=== PATIENT | female | born 1980 | race Caucasian/White ===

== ENCOUNTER 2017-04-19 14:49 | Observation (INO) | payer OTHER ==
--- NOTE | 2017-04-19 15:56 | EDPHY ---
H & P Stated Complaint: ABDOMINAL PAIN SHOULDER PAIN HPI/ROS: HPI CHIEF COMPLAINT: Abdominal pain, sudden onset HISTORY OF PRESENT ILLNESS: This patient very pleasant 36-year-old female does have significant past medical history for ovarian cyst, she presents emergency room with sudden onset lower pelvic abdominal pain and bloating while having intercourse at 2:00 a.m. last night. She states the pain has been persistent. She decided to go to politely his today to work out to see if this would improve her abdominal pain however the abdominal pain got worse. She also reports to me that when she takes a deep breath in she gets referred right shoulder pain. Denies chest pain or shortness of breath. However when she does take a deep breath in her abdomen hurts her. She is tender no low adnexal bilaterally. Denies vaginal bleeding. Denies being . Denies urinary symptoms. Denies diarrhea, fever, vomiting. Apple Oddi she noticed when she went to lay flat she developed worsening pelvic pain. Past Medical History: Ovarian cyst Past Surgical History: Left knee surgery Social History: Denies daily use of drugs alcohol tobacco products Family History: Noncontributory ROS REVIEW OF SYSTEMS: A comprehensive 10 point review of systems is otherwise negative aside from elements mentioned in the history of present illness. Exam Constitutional appears well nontoxic triage nursing summary reviewed, vital signs reviewed, awake/alert. Eyes normal conjunctivae and sclera, EOMI, PERRLA. HENT normal inspection, atraumatic, moist mucus membranes, no epistaxis, neck supple/ no meningismus, no raccoon eyes. Respiratory clear to auscultation bilaterally, normal breath sounds, no respiratory distress, no wheezing. Cardiovascular rate normal, regular rhythm, no murmur, no edema, distal pulses normal. Gastrointestinal soft however tenderness palpation bilateral adnexa, no peritoneal signs, no rebound, no guarding, normal bowel sounds, no distension, no pulsatile mass. Genitourinary no CVA tenderness. Musculoskeletal no midline vertebral tenderness, full range of motion, no calf swelling, no tenderness of extremities, no meningismus, good pulses, neurovascularly intact. Skin pink, warm, & dry, no rash, skin atraumatic. Neurologic awake, alert and oriented x 3, AAOx3, moves all 4 extremities equally, motor intact, sensory intact, CN II-XII intact, normal cerebellar, normal vision, normal speech. Psychiatric normal mood/affect. Heme/Lymph/Immune no lymphadenopathy. Differential diagnosis includes but is not limited to and in no particular order : Ruptured ovarian cyst, intra-abdominal free fluid, ovarian torsion, ectopic , Bowel obstruction, appendicitis, gallbladder disease, diverticulitis, colitis, enteritis, perforated viscus, gastritis, GERD, esophagitis, urinary tract infection, pyelonephritis, kidney stones Medical Decision Making: Plan for this IV establishment, IV fluid bolus, IV Dilaudid for acute pain control. Pelvic ultrasound, basic blood work. Urinalysis. test. Re-evaluation: CT scan of the abdomen pelvis with IV contrast. The results of the study are shows a large amount of free fluid with Hounsfield units that are consistent with blood. Fluid is present throughout the entire abdomen tracks along the liver edge. Is also noted to be at 3.6 x 3 cm mass in the right adnexa. Concerning for mass versus ruptured ovarian cyst. The study was read by Dr. Ramírez . I viewed the images myself on the PACS system. 1818: Patient has ongoing abdominal pain. Her vital signs are hemodynamically stable her H&H are noted to be a hemoglobin of 10. Given her CT scan shows blood in her abdomen with a right ovarian or right adnexal mass I will consult OBGYN for 1. for admission for hemodynamic monitoring 2. pain control, also for evaluation of most likely active bleeding ovarian cyst. 1823: Spoke Yuli Marmolejo. Onc-call for OBGYN. Will speak with their attending physician Dr. García. They will be briefly back with me. Meanwhile patient be typed and screen. 2nd IV started. Most likely she will need to be admitted for hemoperitoneum and ruptured ovarian cyst. At this time she is hemodynamically stable no acute distress. 1850: Dr. García at bedside evaluating patient will take patient to the OR for laparoscopic evaluation of large amount of hemoperitoneum with most likely ruptured ovarian cyst. At this time patient hemodynamically stable. H&H reviewed. 2nd IV placed. Patient type and screen. Critical Care: Total Critical Care Time Spent Managing this Patient: 65Minutes. This time was spent Exclusively with this patient. This Care was exclusive of procedures. The Organ System/life at risk was hemorrhagic This Patient was in Critical Condition because intra-abdominal hemorrhage requiring resuscitation. Source: Patient - Personal History LMP (Females 10-55): 22-28 Days Ago Current Tetanus/Diphtheria Vaccine: No - Medical/Surgical History Hx Asthma: No Hx Chronic Respiratory Disease: No Hx Diabetes: No Hx Cardiac Disease: No Hx Renal Disease: No Hx Cirrhosis: No Hx Alcoholism: No Hx HIV/AIDS: No Hx Splenectomy or Spleen Trauma: No Other PMH: HERNIA - Social History Smoking Status: Never smoked Constitutional: Initial Vital Signs Temperature (C) 36.9 C 04/19/17 15:06 Heart Rate 110 H 04/19/17 15:06 Respiratory Rate 18 04/19/17 15:06 Blood Pressure 101/72 04/19/17 15:06 O2 Sat (%) 99 04/19/17 15:06 O2 Delivery Mode Nasal Cannula O2 (L/minute) 2 Allergies/Adverse Reactions: No Allergies [NKDA] Allergy (Verified 10/24/10 14:54) Home Medications: Medication Instructions Recorded Hydrocodone/APAP 5/325 [Wadley 1 - 2 tab PO Q4HRS PRN #40 tab 04/20/17 5/325 (*)] Ibuprofen [Motrin (*)] 600 mg PO Q6H #40 tab 04/20/17 Medical Decision Making - Data Points Laboratory Results: Laboratory Results 04/19/17 16:15 04/19/17 16:15 Medications Given: Discontinued Medications Hydromorphone HCl (Dilaudid) 0.5 mg IVP EDNOW ONE Stop: 04/19/17 16:07 Last Admin: 04/19/17 16:17 Dose: 0.5 mg Hydromorphone HCl (Dilaudid) 1 mg IVP EDNOW ONE Stop: 04/19/17 17:28 Last Admin: 04/19/17 17:45 Dose: 1 mg Sodium Chloride (Ns) 1,000 mls @ 0 mls/hr IV EDNOW ONE; Wide Open PRN Reason: Protocol Stop: 04/19/17 16:07 Last Admin: 04/19/17 16:17 Dose: 1,000 mls Sodium Chloride (Ns) 1,000 mls @ 0 mls/hr IV ONCE ONE PRN Reason: Wide Open Stop: 04/19/17 17:28 Last Admin: 04/19/17 17:45 Dose: 1,000 mls Meperidine HCl (Demerol 25 Mg/Ml Syringe) 12.5 - 25 mg IVP ONCE PRN PRN Reason: PACU,shivering/rigors Stop: 04/19/17 22:19 Last Admin: 04/19/17 22:14 Dose: 12.5 mg Midazolam HCl (Versed) 2 mg IVP ONCALL ONE Stop: 04/19/17 19:40 Last Admin: 04/19/17 23:33 Dose: Not Given Ondansetron HCl (Zofran) 4 mg IVP EDNOW ONE Stop: 04/19/17 17:42 Last Admin: 04/19/17 17:42 Dose: 4 mg Ondansetron HCl (Zofran) 4 mg IVP EDNOW ONE Stop: 04/19/17 17:48 Last Admin: 04/19/17 17:49 Dose: Not Given Departure - Departure Disposition: [facility] Clinical Impression: Ruptured ovarian cyst, Hemoperitoneum Condition: Fair
[2017-04-19] MEDS ORDERED: NS 1,000 ML IV ONE ×2 (16:06→17:27)
[2017-04-19] MEDS: HYDROmorphONE/DILAUDID 1 MG/ML SYR IVP ONE ×2 (16:15→16:17)
[2017-04-19 16:26] LABS: % IMMATURE GRANULYOCYTES 0.5 % (0.0-1.1); ABSOLUTE IMMATURE GRANULOCYTES 0.07 10^3/uL (0.00-0.10); ADD DIFF? NO; ADD MORPH? NO; ADD SCAN? NO; ATYPICAL LYMPHOCYTE FLAG 10 (0-99); FRAGMENT RBC FLAG 0 (0-99); HEMATOCRIT 31.8 % (38.0-47.0); HEMOGLOBIN 10.5 g/dL (12.6-16.3); LEFT SHIFT FLG 0 (0-99); LIPEMIA HEMOLYSIS FLAG 80 (0-99); MEAN CELL HEMOGLOBIN 30.3 pg (27.9-34.1); MEAN CELL VOLUME 91.9 fL (81.5-99.8); MEAN PLATELET VOLUME 9.8 fL (8.7-11.7); PLATELET CLUMPS FLAG 0 (0-99); PLATELET COUNT 317 10^3/uL (150-400); RED BLOOD CELL COUNT 3.46 10^6/uL (4.18-5.33); RED CELL DISTRIBUTION WIDTH 12.6 % (11.5-15.2)
[2017-04-19 16:42] LABS: ALANINE AMINOTRANSFERASE 26 IU/L (9-52); ALBUMIN 4.2 g/dL (3.5-5.0); ALKALINE PHOSPHATASE 43 IU/L (38-126); ANION GAP 12 mEq/L (8-16); ASPARTATE AMINOTRANSFERASE 20 IU/L (14-46); BILIRUBIN,TOTAL 0.8 mg/dL (0.1-1.4); BILIRUBIN-CONJUGATED 0.1 mg/dL (0.0-0.5); BILIRUBIN-UNCONJUGATED 0.7 mg/dL (0.0-1.1); CALCIUM 9.6 mg/dL (8.5-10.4); CARBON DIOXIDE 19 mEq/l (22-31); CHLORIDE 107 mEq/L (97-110); CREATININE 0.7 mg/dL (0.6-1.0); GLOMERULAR FILTRATION RATE > 60; GLUCOSE 122 mg/dL (70-100); SODIUM 138 mEq/L (134-144); TOTAL PROTEIN 7.3 g/dL (6.3-8.2)
[2017-04-19] MEDS ORDERED: HYDROmorphONE/DILAUDID 1 MG/ML SYR IVP ONE (17:27)
[2017-04-19] MEDS ORDERED: IOPAMIDOL (ISOVUE-300) 100 ML BTL ONE (17:36)
[2017-04-19] MEDS ORDERED: ONDANSETRON 4 MG/2 ML VIAL ONE ×2 (17:38→20:04)
[2017-04-19] MEDS ORDERED: ONDANSETRON 4 MG/2 ML VIAL IVP ONE ×2 (17:41→17:47)
[2017-04-19 19:18] LABS: % IMMATURE GRANULYOCYTES 0.4 % (0.0-1.1); ABSOLUTE IMMATURE GRANULOCYTES 0.05 10^3/uL (0.00-0.10); ADD DIFF? NO; ADD MORPH? NO; ADD SCAN? NO; ATYPICAL LYMPHOCYTE FLAG 0 (0-99); FRAGMENT RBC FLAG 0 (0-99); HEMATOCRIT 26.1 % (38.0-47.0); HEMOGLOBIN 8.7 g/dL (12.6-16.3); LEFT SHIFT FLG 0 (0-99); LIPEMIA HEMOLYSIS FLAG 80 (0-99); MEAN CELL HEMOGLOBIN CONCENTR. 33.3 g/dL (32.4-36.7); MEAN CELL VOLUME 92.9 fL (81.5-99.8); MEAN PLATELET VOLUME 9.7 fL (8.7-11.7); PLATELET CLUMPS FLAG 0 (0-99); PLATELET COUNT 255 10^3/uL (150-400); RED BLOOD CELL COUNT 2.81 10^6/uL (4.18-5.33); RED CELL DISTRIBUTION WIDTH 12.5 % (11.5-15.2)
[2017-04-19] MEDS ORDERED: SILVER NITRATE APPLICATOR 1 APPL TP ONE (19:31)
[2017-04-19] MEDS ORDERED: BUPIVACAINE 0.25% 30 ML SDV ONE (19:31)
[2017-04-19] MEDS ORDERED: MIDAZOLAM 2 MG/2 ML VIAL IVP ONE (19:39)
--- NOTE | 2017-04-19 19:39 | PDANEPAE ---
ANE History of Present Illness 36 yo F w/ abdominal pain, evidence for ruptured ovarian cyst, here for ex lap ANE Past Medical History - Cardiovascular History Hx Hypertension: No Hx Arrhythmias: No Hx Chest Pain: No Hx Coronary Artery / Peripheral Vascular Disease: No Hx CHF / Valvular Disease: No Hx Palpitations: No - Pulmonary History Hx COPD: No Hx Asthma/Reactive Airway Disease: No - Endocrine History Hx Diabetes: No ANE Review of Systems Review of systems is: negative - Exercise capacity Exercise capacity: >=4 METS ANE Patient History - Allergies Allergies/Adverse Reactions: No Allergies [NKDA] Allergy (Verified 10/24/10 14:54) - Home Medications Home medications: home medication list seen and reviewed Home Medications: NK [No Known Home Meds] 04/19/17 [Last Taken Unknown] - NPO status NPO Status: no food or drink >8 hours NPO Since - Liquids (Date): 04/19/17 NPO Since - Liquids (Time): 09:00 - Anes Hx Anes Hx: no prior problems - Smoking Hx Smoking Status: Never smoked - Alcohol Use Alcohol Use: Rarely - Family Anes Hx Family Anes Hx: none ANE Labs/Vital Signs - Labs Result Diagrams: 04/19/17 19:12 04/19/17 16:15 - Vital Signs Blood Pressure: 108/51 Heart Rate: 98 Respiratory Rate: 16 O2 Sat (%): 100 Height: 16.76 m Weight: 58.967 kg ANE Physical Exam - Airway Neck exam: FROM Mallampati Score: Class 1 Mouth exam: normal dental/mouth exam - Pulmonary Pulmonary: no respiratory distress, clear to auscultation - Cardiovascular Cardiovascular: regular rate and rhythym, no murmur, rub, or gallop - ASA Status ASA Status: I, E ANE Anesthesia Plan Anesthesia Plan: general endotracheal anesthesia
[2017-04-19] MEDS ORDERED: PROPOFOL 200 MG/20 ML VIAL ONE (19:43)
[2017-04-19] MEDS ORDERED: fentaNYL 100 MCG/2 ML INJ ONE ×2 (19:43→21:20)
[2017-04-19] MEDS ORDERED: ROCURONIUM 50 MG/5 ML VIAL ONE (19:46)
[2017-04-19] MEDS ORDERED: LIDOCAINE 2% 100 MG/5 ML SYR ONE (19:46)
[2017-04-19] MEDS ORDERED: MIDAZOLAM 2 MG/2 ML VIAL ONE (19:47)
--- NOTE | 2017-04-19 20:00 | GHP ---
[f rep st] HISTORY AND PHYSICAL DATE OF ADMISSION: 04/19/2017 CHIEF COMPLAINT: Abdominal pain. HISTORY OF PRESENT ILLNESS: The patient is a 36-year-old 2, para 2 female with last menstru al period of March 24, 2017, who presents to the emergency room with acute onset lower abdominal pain that she reports started with intercourse last night around 2 a.m. She reports the pain intermitte ntly became worse and has become much more constant over the last few hours. She now has pain radia ting up into her right shoulder with deep breaths. She denies any chest pain or shortness of breath . She denies any vaginal bleeding. She reports that she has been using condoms for control a nd denies any known . She denies any urinary symptoms or gastrointestinal symptoms other t perkins mild nausea, but no vomiting. PAST MEDICAL HISTORY: History of an ovarian cyst in the past. PAST SURGICAL HISTORY: Left knee arthroscopy and wisdom teeth removal. PAST OBSTETRIC HISTORY: History of spontaneous vaginal delivery x2 in the past with no complication s reported. ALLERGIES: No known drug allergies. MEDICATIONS: None. SOCIAL HISTORY: Denies any tobacco, alcohol, or drug use. FAMILY HISTORY: Noncontributory. REVIEW OF SYSTEMS: A comprehensive 10-point review of systems was reviewed and is otherwise negativ e aside from elements mentioned in History of Present Illness. PHYSICAL EXAMINATION: VITAL SIGNS: Blood pressure 101/57, with heart rate of 77, respiratory rate 20, O2 sat 99% on 2 L of nasal cannula. GENERAL: Mild distress due to pain when lying flat. CHEST : Clear to auscultation bilaterally. CARDIOVASCULAR: Regular rate and rhythm. ABDOMEN: Tender t o palpation throughout her abdomen with mild rebound and no guarding. PELVIC: The uterus and adnex a were tender bilaterally. LABORATORY DATA: CBC shows hematocrit of 31 and normal platelets at 1615. Chemistry panel normal o ther than slightly low carbon dioxide and elevated glucose. Normal lipase and normal liver function tests. Serum beta HCG was negative. Type and screen is pending. Pelvic ultrasound showed free fluid, possibly representing hemorrhage noted in the pelvis, with an i ndeterminate right adnexal abnormality and left ovary that was not well visualized. The right ovary did appear normal. The left ovary was measured but was not as clearly seen. There is a more fixed structure in the right adnexa which could reflect focal bowel hemorrhage, hematoma or a mass. CT scan of the abdomen and pelvis with IV contrast shows a large amount of free fluid with Hounsfiel d units that are consistent with blood. Fluid is present throughout the entire abdomen and tracks a long the liver edge. There is also a 3.6 x 3 cm mass in the right adnexa with suspected active blee ding as read with Dr. García. ASSESSMENT: 1. Patient is a 36-year-old 2, para 2 female with hemoperitoneum and abdominal pain with a suspected ruptured right ovarian cyst. Currently hemodynamically stable but with significant pain a nd hemoperitoneum confirmed on imaging. Plan: Admit to the operating room. 2. Anemia: Repeat CBC ordered while getting the patient to the operating room. 3. Right ovarian cyst ruptured with hemoperitoneum: The patient was counseled along with her juan rba nd regarding the clinical and imaging findings that are consistent with a suspected ruptured hemorrh agic ovarian cyst. PLAN: I recommended that we plan to proceed with operative laparoscopy, removal of the hemoperitone um and an ovarian cystectomy or any other necessary procedures to stop the bleeding. We discussed t he risks of surgery in depth to include general risks of infection, bleeding, damage to surrounding structures and organs, blood transfusion, and all necessary procedures to include risks of anesthesi a. All questions were answered. She agrees to proceed. /[id number]/MODL
[2017-04-19] MEDS ORDERED: DEXAMETHASONE 4 MG/ML VIAL ONE (20:04)
[2017-04-19] MEDS ORDERED: SURGIFLO MATRIX KIT WITH THROMBIN TP ONE (21:04)
[2017-04-19] MEDS ORDERED: fentaNYL 100 MCG/2 ML INJ IVP PRN ×2 (21:19)
[2017-04-19] MEDS ORDERED: HYDROmorphONE/DILAUDID 1 MG/ML SYR IVP PRN ×2 (21:19)
[2017-04-19] MEDS ORDERED: D5W LR 500 ML IV PRN (21:19)
[2017-04-19] MEDS ORDERED: PROMETHAZINE HCL 25 MG/ML INJ IVP PRN (21:19)
[2017-04-19] MEDS ORDERED: ONDANSETRON 4 MG/2 ML VIAL IVP PRN ×2 (21:19→21:47)
[2017-04-19] MEDS ORDERED: NALOXONE HCL 0.4 MG/ML INJ IVP PRN (21:19)
[2017-04-19] MEDS ORDERED: SUGAMMADEX SODIUM 200 MG/2 ML VIAL IVP ONE (21:25)
[2017-04-19] MEDS ORDERED: HYDROCODONE/APAP 5/325 TAB PO PRN (21:45)
--- NOTE | 2017-04-19 21:52 | POSTANESTH ---
Post Anesthetic Evaluation Cardiovascular Status: Normal, Stable, Similar to Pre-Op Cond Respiratory Status: Normal, Stable, Similar to Pre-op Cond. Level of Consciousness/Mental Status: Can Participate in Eval, Alert and Oriented Pain Control: Adequate, Prn Tx Ordered Nausea/Vomiting Control: Adequate, Prn Tx Ordered Complications Possibly Related to Anesthesia: None Noted
--- NOTE | 2017-04-19 21:53 | POSTOPPROG ---
Post Op Note Date of Operation: 04/19/17 Surgeon: Leola García Brick Molder Hand: Shaila Cat MD Anesthesiologist: MD Skyla Anesthesia: GET(General Endotracheal) Pre-op Diagnosis: 1) Hemoperitoneum, 2) Ruptured ovarian cyst Post-op Diagnosis: CRISTA Indication: Hemoperitoneum with acute abdominal pain Procedure: L/S right ovarian cystectomy, evacuation of hemoperitoneum Findings: Hemoperitoneum of 1000cc, actively bleeding right ovarian cyst Inf/Abcess present in the surg proc area at time of surgery?: No Depth: Organ Space EBL: Minimal Total fluids administered: 400 cc Complications: None Drains: Other (sosa to gravity) Specimen(s): right ovarian cyst
[2017-04-19] MEDS ORDERED: LR 1,000 ML IV SCH (22:00)
[2017-04-19] MEDS ORDERED: MEPERIDINE 25 MG/ML SYR ONE (22:03)
[2017-04-19] MEDS: MEPERIDINE 25 MG/ML SYR IVP PRN ×2 (22:04→22:14)
[2017-04-19 22:21] LABS: HEMATOCRIT 29.2 % (38.0-47.0); HEMOGLOBIN 9.4 g/dL (12.6-16.3)
[2017-04-20] MEDS: IBUPROFEN 600 MG TAB PO SCH ×3 (00:16→11:58)
[2017-04-20 06:49] LABS: % IMMATURE GRANULYOCYTES 0.5 % (0.0-1.1); ABSOLUTE IMMATURE GRANULOCYTES 0.07 10^3/uL (0.00-0.10); ADD DIFF? NO; ADD MORPH? NO; ADD SCAN? NO; ATYPICAL LYMPHOCYTE FLAG 10 (0-99); FRAGMENT RBC FLAG 0 (0-99); HEMATOCRIT 25.3 % (38.0-47.0); HEMOGLOBIN 8.1 g/dL (12.6-16.3); LEFT SHIFT FLG 0 (0-99); LIPEMIA HEMOLYSIS FLAG 80 (0-99); MEAN CELL VOLUME 93.7 fL (81.5-99.8); MEAN PLATELET VOLUME 10.2 fL (8.7-11.7); PLATELET CLUMPS FLAG 10 (0-99); PLATELET COUNT 241 10^3/uL (150-400); RED CELL DISTRIBUTION WIDTH 12.9 % (11.5-15.2)
--- NOTE | 2017-04-20 08:50 | SOAPPROG ---
SOAP Progress Note Assessment/Plan: Assessment: 36 y/o POD#1 s/p L/S right ovarian cystectomy and evacuation of hemoperitoneum - hemodynamically stable and doing well Plan: 1) Discharge home 2) RX for motrin and norco given. OTC iron for mild anemia 3) F/U in 2 weeks or sooner prn 04/20/17 08:49 Subjective: Pt is feeling well, ambulating, sosa out, no void yet, pain well controlled with only motrin. No complaints. No nausea/vomiting. No lightheadedness/ dizziness. Objective: Vital Signs Temp Pulse Resp BP Pulse Ox 37.3 C 90 18 113/58 L 99 04/20/17 01:45 04/20/17 01:45 04/20/17 01:45 04/20/17 01:45 04/20/17 01:45 Laboratory Results 04/20/17 06:00 04/19/17 04/20/17 04/21/17 05:59 05:59 05:59 Intake Total 2750 Output Total 1225 Balance 1525 Physical Exam - Physical Exam General Appearance: WD/WN, alert, no apparent distress Respiratory: lungs clear Cardiac/Chest: regular rate, rhythm Abdomen: normal bowel sounds, non-tender, soft (incisions - c/d/i) ICD10 Worksheet Patient Problems: Problems Problem Status Onset Hemoperitoneum Acute Ruptured ovarian cyst Acute
--- NOTE | 2017-04-20 08:52 | PDDCSUM ---
Discharge Summary Discharge Summary: Admission dx = hemoperitoneum, abdominal pain Discharge dx = ruptured right ovarian cyst, s/p laparoscopic right ovarian cystectomy Hospital course: Pt underwent a L/S right ovarian cystectomy with evacuation of 1000cc of hemoperitoneum. No immediate complications. She did well postoperatively with HCT of 25. No symptoms of anemia. Pain well controlled, voiding, ambulating, passing flatus. F/U in 2 weeks w/ Dr García RX for motrin and norco given Pain/bleeding/fever precautions Regular diet
[2017-04-20 08:57] VITALS: BP 99/55; PULSE 82; RESP 16; TEMP 98.8; O2SAT 96
--- NOTE | 2017-04-20 10:26 | GOP ---
[f rep st] OPERATIVE REPORT DATE OF OPERATION: 04/19/2017 SURGEON: Leola García MD NEEDLE FELT MAKING MACHINE OPERATOR: Shaila Cta MD ANESTHESIA: General. PREOPERATIVE DIAGNOSIS: 1. Acute abdominal pain. 2. Hemoperitoneum. 3. Suspected ruptured right ovarian cyst. POSTOPERATIVE DIAGNOSIS: 1. Hemoperitoneum. 2. Acute abdominal pain. 3. Ruptured right ovarian cyst. PROCEDURE PERFORMED: Laparoscopic right ovarian cystectomy and evacuation of hemoperitoneum. FINDINGS: 1. Normal uterus, bilateral fallopian tubes, and left ovary. 2. Significant hemoperitoneum was noted throughout her pelvis and abdomen totaling 1000 cc by the e nd of the surgery. 1. The right ovary was found to have active bleeding that was coming from the cyst within the right ovary. The cyst was opened, and the cyst wall was dissected and removed. Hemostasis was then obta ined. 3. SPECIMENS: Cyst wall and ovarian cysts. ESTIMATED BLOOD LOSS: 25 cc. INDICATIONS: Patient is a 36-year-old 2, para 2, female who presented with acute abdominal pain and was noted to have hemoperitoneum with a suspected complex finding near the right adnexa con sistent with a suspected ruptured right ovarian cyst. Her preoperative hematocrit dropped from 31 t o 26 over a 3-hour period. She remained hemodynamically stable, but clearly had evidence of a surgi jocelyn abdomen. She was counseled and agreed to proceed with surgical evaluation and treatment as need ed. DESCRIPTION OF PROCEDURE: The patient was taken to the operating room, where general anesthesia was found to be adequate. Patient was prepared and draped in the normal sterile fashion in the dorsal lithotomy position. A speculum was placed in the patient's vagina and a Argueta retractor used to visu madeleine the cervix clearly. A single-toothed tenaculum was placed on the anterior lip of the cervix, and a Guerrero uterine manipulator was placed into the cervix to provide a means to manipulate the uteru s. The speculum was then removed, and attention was turned to the patient's abdomen. A 5 mm skin incision was made in the patient's umbilicus after injection of 0.25% Marcaine. Unless otherwise noted, all anesthetic used was 0.25% Marcaine. A Veress needle was placed through this in cision and placed into the abdominal cavity while tenting the abdominal wall. Intraperitoneal place ment was confirmed with use of a water-filled syringe and appropriate entry CO2 gas pressures. The abdomen was then insufflated with CO2 gas until a pressure of 15 mmHg was reached. The Veress needl e was removed, and a 5 mm trocar was placed through this incision into the peritoneal cavity under d irect visualization with an Optiview trocar. The patient was then placed in Trendelenburg positioni ng, and the findings were significant for hemoperitoneum throughout her abdomen and pelvis. A 5 mm skin incision was then placed on the patient's left side 2 cm superior and anterior to the anterior iliac spine after injection of local anesthetic. A 5 mm trocar was placed through this site into th e peritoneal cavity under direct visualization. A trocar was then placed on the patient's right linda e. The hemoperitoneum was then evacuated from the pelvis. The ovaries and tubes were examined closely, and active bleeding was noted from the right ovary. The cyst wall was penetrated with unipolar cau elvia using the [place]'s. The blood was irrigated out of the cyst cavity. The cyst wall was then grasped with the [place] graspers and teased out initially in pieces with the [place]'s using othe r graspers for counter traction. At one point, the cyst wall was grasped and what appeared to be a large cyst was removed intact from the cyst cavity. This was clearly too large to remove through a 5 mm port. Therefore, the decision was made to enlarge the umbilical incision to a 10 mm incision. The 5 mm trocar was removed. The camera was placed in a side port. A 10 mm incision was then made with a scalpel, and a 10 mm trocar was placed through that incision into the peritoneal cavity unde r direct visualization. An EndoCatch bag was then placed through this incision, and the ovarian cys t was removed using the EndoCatch bag and sent to Pathology. The ovarian cyst cavity was then exami lora closely, and hemostasis was initially attempted using the unipolar cautery without any success. The decision was made to place a third port in order to get better ability to suction and cauterize simultaneously. A 5 mm trocar was placed through a 5 mm skin incision 2 cm superior to the pubic b one in the midline. After placement of this trocar, the cyst cavity was clearly visualized. The gy katty was then used to obtain hemostasis around the edges of the cyst cavity and then used to obtain h emostasis within the cyst cavity. The base of the entire cyst was cauterized, and hemostasis was vi sualized. The pelvis and abdomen were then irrigated with copious amounts of normal saline, and all the hemoperitoneum was evacuated as well as possible. The cyst cavity was examined closely once ag ain, and hemostasis was visualized. For assurance of hemostasis, Surgiflo was then placed in the cy st cavity laparoscopically. Hemostasis was assured, and no active bleeding was noted. The trocars were then removed under direct visualization, and the gas was allowed to escape from her abdomen. The umbilical incision was then examined, and the fascia was closed with an interrupted stitch of 0 Vicryl. The skin incisions were then all closed with subcuticular stitches of 4-0 Monocryl. Hemost asis was assured. The Steri-Strips and bandage dressings were placed. The vaginal instruments were removed from the vagina, and hemostasis was obtained at the tenaculum s ite with silver nitrate. All sponge, lap, and needle counts were correct x2. Patient was awoken from anesthesia without any immediate complications. COMPLICATIONS: None. DRAINS: Solis to gravity. INTRAOPERATIVE HEMOPERITONEUM: 1000 cc. IV FLUIDS: 400 cc. URINE OUTPUT: 200 cc. /[id number]/MODL
[2017-04-20] MEDS ORDERED: IBUPROFEN 600 MG TAB PO SCH (21:49)
== END 2017-04-20 12:03 | disposition home or self-care (01) ==
LOC: INTOOBSV 18:32 → FOB 22:30
PROVIDERS: ADMIT Obstetrics & Gynecology; ATTEND Obstetrics & Gynecology
PROC: 0D9W4ZZ Drainage of Peritoneum, Percutaneous Endoscopic Approach (ICD-10-PCS; principal; 2017-04-19 19:30)
PROC: 0UB04ZX Excision of Right Ovary, Percutaneous Endoscopic Approach, Diagnostic (ICD-10-PCS; principal; 2017-04-19 19:30)
DX: N83.11 Corpus luteum cyst of right ovary (principal); K66.1 Hemoperitoneum
CPT/HCPCS: 58662; 74177; 76856; G0378; 96374; J1100; J1170; J2001; J2250; J2405; J2704; J3010; Q9967